=== PATIENT | female | born 2000 | race Hispanic/Latino ===

== ENCOUNTER 2021-04-19 15:18 | Emergency (ER) | payer BC ==
[~2021-04-19] VITALS: Ht 157.5 cm; Wt 68.5 kg
[2021-04-19 16:19] VITALS: BP 136/87
[2021-04-19] MEDS ORDERED: KETOROLAC 60 MG VIAL (30MG/ML) IM ONE (16:30)
[2021-04-19] MEDS ORDERED: NAPR-1180 PO (16:55)
== END 2021-04-19 17:30 | disposition home or self-care (01) ==
LOC: EDH 15:18
DX: S80.01XA Contusion of right knee, initial encounter (principal); W51.XXXA Accidental striking against or bumped into by another person, initial encounter; Y93.89 Activity, other specified; Y92.69 Other specified industrial and construction area as the place of occurrence of the external cause; Y99.8 Other external cause status
CPT/HCPCS: 73562; 96372; 99284; J1885